=== PATIENT | female | born 1960 | race Caucasian/White ===

== ENCOUNTER → 2016-04-29 | Outpatient (RCR) ==
--- NOTE | 2016-04-29 11:24 | RS.OPPTEV2 ---
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 It was no specific inicident but just the repetative strain that has caouse the pain to increase over the past 3-4 months and she has had to quit her positoin and seek help. She saw her PCP and physical therapy was ordered. She has had PT in the past and it was helpful. Her pain is now lower thoracic and lumbar regions. The lower is somewhat worse. She has been off of work for 2 wks now without much difference in her pain. Prior Level of Function.....Patient was independent with: ADL's, Self Care, Work /Vocation, Caregiving, Ambulation/Mobility, Community Integration/Access Functional Limitations: Pushing, Pulling, Lifting, Carrying, Sitting, Standing, Bending, Squatting, Community Access/Integration Treatment Side (optional): Bilateral Medical History Medical History: Arthritis (ankles) Medical History Comments:: DDD Surgical History: Hysterectomy, Smoking Status: Former smoker Hx Home Medications: just finished a steroid pack Pain Assessment - Pain Description Pain Location: thoracolumbar region. Pain Description: Burning, Throbbing Pain Description: Intermittent pain. Current Pain Intensity: 3/10 Worst Pain Intensity: 8/10 Functional Outcome Measure Oswestry LBP: 14 - G Codes & Severity Modifier G Codes & Modifier: NA Source of G Code score: NA Observation - Observation Posture: Increased Thoracic Kyphosis, Increased Lumbar Lordosis Gait - Gait Pattern General Gait Pattern Observation: Antalgic Gait (Patient has injury to right foot which is causing her to walk with altered gt intermittently.) General Muscle Strength: BLE strength WNLs. - ROM Lumbar Flexion: Hand reach to ankles Sidebending to Left: Reach to Mid-thigh Sidebending to Right: Reach to Lateral Joint Line Lumbar Spine ROM Limitations: Soft Tissue Tightness, Pain - Strength Trunk Flexion: 3 Fair Trunk Rotation: 4+ Good + - Special Tests SLR Test: Negative Left, Negative Right Seated Dural Stretch Test: Negative Left, Negative Right SI Joint Compression: Negative Palpation Palpation Findings: Tenderness Sensation - Sensation Sensation Description: Within Normal Limits Interventions - Exercise/Activities/Manual Therapy Exercises/Activities: NA Manual Therapy: NA HOME EXERCISE PROGRAM: - - Charges Total Direct Minutes: 45 Total Treatment Time: 45 Procedures billed for this date of service:: PT Dimpleal (Low) and moist heat Assessment Assessment: Thoracolumbar pain that has been debilitating to her causing her to have to quit her job. Her functional activity has become limited due to repetetive injury. Patient Education: Education of diagnosis, Body/Joint mechanics, Activity Modification, Education of Plan of Care Rehab Potential: Good Short Term Goals Goal #1: Patient is pain free 50% of the time. Goal to be met by: 05/09/16 Goal #2: Upper abdominal strength 4/5 to support her core. Goal to be met by: 05/09/16 Goal #3: Back pain 5/10 at worst. Goal to be met by: 05/09/16 Goal #4: Independent with basic HEP. Goal to be met by: 05/09/16 Farm Contractor Goals Goal #1: Patient independent DC HEP. Goal to be met by: 05/23/16 Goal #2: Score on Oswestry Scale improved to 8. Goal to be met by: 05/23/16 Goal #3: Patient able to perform all functional activities w/ minimal pain Plan - Treatment to be Provided Procedures: Therapeutic Exercises, Therapeutic Activity, Manual Therapy, Massage , Patient Education Modalities: Electrical Stimulation, Ultrasound/Phonophoresis, Class IV Laser, Cryotherapy, Hot Packs - Treatment Plan Frequency: 2 X week (dpt) Duration: 4 weeks ORDER # VISITS AND/OR THROUGH DATE: 05/23/2016 - Treatment Code (1) Thoracolumbar back pain Comments: M54.4
== END ==
PROVIDERS: ATTEND Family Medicine
DX: M47.9 Spondylosis, unspecified (principal); M54.9 Dorsalgia, unspecified; G89.29 Other chronic pain

== ENCOUNTER 2016-05-23 08:15 | Outpatient (RCR) ==
--- NOTE | 2016-05-02 15:41 | RS.OPPTDN ---
Subjective Date of Note: 05/02/16 Visit #: 2 Date of Evaluation: 04/29/16 Payer Source: Insurance Treatment Diagnosis: Back Pain Current Subjective/complaints:: Patient states heat felt good at her eval, but her entire low back is sore today. Pain Assessment - Pain Description Pain Location: thoracolumbar region. Pain Description: Intermittent pain. Current Pain Intensity: 3/10 - Treatment Modality: Electrical Stim Unattended Parameters/Method Applied: IFC @ 15 pk volts x 20 mins to the lumbar region in sitting Patient Position: Sitting - Heat/Cryotherapy Treatment: Hot Pack Interventions - Exercise/Activities/Manual Therapy Exercises/Activities: Began manual stretching of SKTC, HS, Pirformis, Fig 4, and heel cords bilaterally. She begins pillow squeezes and isometric hip abd x 10. Gave red tband for hooklying hip abd for home. Total minutes of Exercise: 16 Manual Therapy: NA HOME EXERCISE PROGRAM: - - Charges Total Direct Minutes: 16 Total Treatment Time: 36 Procedures billed for this date of service:: hp, estim (un), ex Assessment: Patient seems to romina all treatment well today. She demo tightness bilaterally to the LB/Hams/Heel cords. She admitted relief of pressure and pain today. She is attentive with HEP suggestions and body mechanics. Patient Education: Education of diagnosis, Body/Joint mechanics, Home Exercise Program, Home Safety, Activity Modification, Education of Plan of Care Patient demonstrates compliance with HEP?: Yes Short Term Goals Goal #1: Patient is pain free 50% of the time. Goal to be met by: 05/09/16 Goal #2: Upper abdominal strength 4/5 to support her core. Goal to be met by: 05/09/16 Goal #3: Back pain 5/10 at worst. Goal to be met by: 05/09/16 Goal #4: Independent with basic HEP. Goal to be met by: 05/09/16 Residential Goals Goal #1: Patient independent DC HEP. Goal to be met by: 05/23/16 Goal #2: Score on Oswestry Scale improved to 8. Goal to be met by: 05/23/16 Goal #3: Patient able to perform all functional activities w/ minimal pain Plan PLAN OF CARE EXPIRES ON:: 05/23/16 ORDER # VISITS AND/OR THROUGH DATE: 05/23/2016 PLAN: Continue Plan of Care
--- NOTE | 2016-05-05 12:08 | RS.OPPTDN ---
Subjective Date of Note: 05/05/16 Visit #: 3 Date of Evaluation: 04/29/16 Payer Source: Insurance Treatment Diagnosis: Back Pain Current Subjective/complaints:: Patient says her back pain is not bad today. Reports knees are bothering her though. She denies any soreness from therex last session. Pain Assessment - Pain Description Pain Location: thoracolumbar region. Pain Description: Intermittent pain. Current Pain Intensity: 3/10 - Treatment Modality: Electrical Stim Unattended Parameters/Method Applied: IFC @ 12 cv x 20 mins to the lumbar paraspinals Patient Position: Sitting - Heat/Cryotherapy Treatment: Hot Pack (mid to low back) Interventions - Exercise/Activities/Manual Therapy Exercises/Activities: Began manual stretching of SKTC, HS, Pirformis, Fig 4, lower trunk rotation, and heel cords bilaterally. She continues with pillow squeezes 2x10, bridging, isometric hip flexion, isometric hip abd x 10. Total minutes of Exercise: 22 Manual Therapy: NA HOME EXERCISE PROGRAM: - - Charges Total Direct Minutes: 22 Total Treatment Time: 42 Procedures billed for this date of service:: hp, estim (un), ex Assessment: Patient with very little pain today to the LB. She says she did not have any trouble romina therex last session. She romina all well today demo improved flexibility. Patient Education: Education of diagnosis, Body/Joint mechanics, Home Exercise Program, Home Safety, Activity Modification, Education of Plan of Care Patient demonstrates compliance with HEP?: Yes Short Term Goals Goal #1: Patient is pain free 50% of the time. Goal to be met by: 05/09/16 Goal #2: Upper abdominal strength 4/5 to support her core. Goal to be met by: 05/09/16 Goal #3: Back pain 5/10 at worst. Goal to be met by: 05/09/16 Goal #4: Independent with basic HEP. Goal to be met by: 05/09/16 Sole Tier Goals Goal #1: Patient independent DC HEP. Goal to be met by: 05/23/16 Goal #2: Score on Oswestry Scale improved to 8. Goal to be met by: 05/23/16 Goal #3: Patient able to perform all functional activities w/ minimal pain Plan PLAN OF CARE EXPIRES ON:: 05/23/16 ORDER # VISITS AND/OR THROUGH DATE: 05/23/2016 PLAN: Progress Exercises
--- NOTE | 2016-05-09 12:00 | RS.OPPTDN ---
Subjective Date of Note: 05/09/16 Visit #: 4 Date of Evaluation: 04/29/16 Payer Source: Insurance Treatment Diagnosis: Back Pain Current Subjective/complaints:: Patient states treatment feels good and exercises are not bothering her, but seems to not last very long. She says pain is still in the same location (at the lumbar region). She c/o only mild pain today. Pain Assessment - Pain Description Pain Location: thoracolumbar region. Pain Description: Intermittent pain. Current Pain Intensity: 3/10 - Treatment Modality: Electrical Stim Unattended Parameters/Method Applied: IFC @ 13cv x 20 mins to the lumbar paraspinals Patient Position: Sitting - Heat/Cryotherapy Treatment: Hot Pack Interventions - Exercise/Activities/Manual Therapy Exercises/Activities: Continued with manual stretching of SKTC, HS, Pirformis, Fig 4, lower trunk rotation, and heel cords bilaterally. She continues with pillow squeezes 2x10, bridging, isometric hip flexion, isometric hip abd x 10. Total minutes of Exercise: 22 Manual Therapy: NA HOME EXERCISE PROGRAM: - - Charges Total Direct Minutes: 22 Total Treatment Time: 42 Procedures billed for this date of service:: hp, estim (un), ex Assessment: Patient admits to temporary relief currently to the low back. Symptoms continue to be local and stretches appear to be becoming easier and she is applying increased resistance with isometrics. Patient Education: Education of diagnosis, Body/Joint mechanics, Home Exercise Program, Home Safety, Activity Modification, Education of Plan of Care Patient demonstrates compliance with HEP?: Yes Short Term Goals Goal #1: Patient is pain free 50% of the time. Goal to be met by: 05/09/16 Progress towards Goal:: Progressing Goal #2: Upper abdominal strength 4/5 to support her core. Goal to be met by: 05/09/16 Goal #3: Back pain 5/10 at worst. Goal to be met by: 05/09/16 Progress towards Goal:: Progressing Goal #4: Independent with basic HEP. Goal to be met by: 05/09/16 Mural Artist Goals Goal #1: Patient independent DC HEP. Goal to be met by: 05/23/16 Goal #2: Score on Oswestry Scale improved to 8. Goal to be met by: 05/23/16 Goal #3: Patient able to perform all functional activities w/ minimal pain Plan PLAN OF CARE EXPIRES ON:: 05/23/16 ORDER # VISITS AND/OR THROUGH DATE: 05/23/2016 PLAN: Progress Exercises
--- NOTE | 2016-05-12 10:16 | RS.OPPTDN ---
Subjective Date of Note: 05/12/16 Visit #: 5 Date of Evaluation: 04/29/16 Payer Source: Insurance Treatment Diagnosis: Back Pain Current Subjective/complaints:: Patient states her back pain was better after her last session. Up until that point, she felt pain remained the same with treatment. She has been able to perform HEP without difficulty. Pain Assessment - Pain Description Pain Location: thoracolumbar region. Pain Description: Intermittent pain. Current Pain Intensity: 3/10, less today - Treatment Modality: Electrical Stim Unattended Parameters/Method Applied: IFC @ 16 cv to the lumbar paraspinals x 20 mins Patient Position: Sitting - Heat/Cryotherapy Treatment: Hot Pack (concurrent with estim) Interventions - Exercise/Activities/Manual Therapy Exercises/Activities: Continued with manual stretching of SKTC, HS, Pirformis, Fig 4, lower trunk rotation, and heel cords bilaterally. She continues with ball squeezes 2x10, bridging and started SLR 2x5, isometric hip flexion, isometric hip abd x 10. Total minutes of Exercise: 22 Manual Therapy: NA HOME EXERCISE PROGRAM: - - Charges Total Direct Minutes: 22 Total Treatment Time: 42 Procedures billed for this date of service:: hp, estim (un), ex Assessment: Patient admitting improved back pain with IFC treatment. She demonstrates increased flexibility today with all therex. She shows some general muscle fatigue with SLR, so only 2 sets of 5 were performed. She should gain further trunk stability and reduced back pain with further sessions. Patient Education: Education of diagnosis, Body/Joint mechanics, Home Exercise Program, Home Safety, Activity Modification, Education of Plan of Care Patient demonstrates compliance with HEP?: Yes Short Term Goals Goal #1: Patient is pain free 50% of the time. Goal to be met by: 05/09/16 Progress towards Goal:: Progressing Goal #2: Upper abdominal strength 4/5 to support her core. Goal to be met by: 05/09/16 Goal #3: Back pain 5/10 at worst. Goal to be met by: 05/09/16 Progress towards Goal:: Progressing Goal #4: Independent with basic HEP. Goal to be met by: 05/09/16 Correction Goals Goal #1: Patient independent DC HEP. Goal to be met by: 05/23/16 Goal #2: Score on Oswestry Scale improved to 8. Goal to be met by: 05/23/16 Goal #3: Patient able to perform all functional activities w/ minimal pain Plan PLAN OF CARE EXPIRES ON:: 05/23/16 ORDER # VISITS AND/OR THROUGH DATE: 05/23/2016 PLAN: Continue Plan of Care
--- NOTE | 2016-05-16 10:06 | RS.OPPTDN ---
Subjective Date of Note: 05/16/16 Visit #: 6 Date of Evaluation: 04/29/16 Payer Source: Insurance Treatment Diagnosis: Back Pain Current Subjective/complaints:: Patient states her back pain is better. Actuually denies pain currently. She says she still has trouble sleeping, but not necessarily due to back pain. Pain Assessment - Pain Description Pain Location: thoracolumbar region. Pain Description: Intermittent pain. Current Pain Intensity: 3/10, less today - Treatment Modality: Electrical Stim Unattended Parameters/Method Applied: IFC x 20 mins @ 12-14cv lumbar paraspinals Patient Position: Sitting - Heat/Cryotherapy Treatment: Hot Pack Interventions - Exercise/Activities/Manual Therapy Exercises/Activities: Continued with manual stretching of SKTC, HS, Pirformis, Fig 4, lower trunk rotation, and heel cords bilaterally. She continues with ball squeezes 2x10, bridging and started SLR 2x8, isometric hip flexion, isometric hip abd with green tband in hooklying 2 x 10. SAQ 1 1/2# and alternate LE lift 1 1/2# 2x10. Total minutes of Exercise: 25 Manual Therapy: NA HOME EXERCISE PROGRAM: - - Charges Total Direct Minutes: 25 Total Treatment Time: 40 Procedures billed for this date of service:: hp, estim (un), ex2 Assessment: Patient with reduced pain this week to the low back. She is romina progressive therex well and demonstrating increased flexibility. Patient Education: Education of diagnosis, Body/Joint mechanics, Home Exercise Program, Home Safety, Activity Modification, Education of Plan of Care Patient demonstrates compliance with HEP?: Yes Short Term Goals Goal #1: Patient is pain free 50% of the time. Goal to be met by: 05/09/16 Progress towards Goal:: Progressing Goal #2: Upper abdominal strength 4/5 to support her core. Goal to be met by: 05/09/16 Progress towards Goal:: Progressing Goal #3: Back pain 5/10 at worst. Goal to be met by: 05/09/16 Progress towards Goal:: Progressing Goal #4: Independent with basic HEP. Goal to be met by: 05/09/16 Correction Goals Goal #1: Patient independent DC HEP. Goal to be met by: 05/23/16 Goal #2: Score on Oswestry Scale improved to 8. Goal to be met by: 05/23/16 Goal #3: Patient able to perform all functional activities w/ minimal pain Plan PLAN OF CARE EXPIRES ON:: 05/23/16 ORDER # VISITS AND/OR THROUGH DATE: 05/23/2016 PLAN: Progress Exercises
--- NOTE | 2016-05-19 13:48 | RS.OPPTDN ---
Subjective Date of Note: 05/19/16 Visit #: 7 Date of Evaluation: 04/29/16 Payer Source: Insurance Treatment Diagnosis: Back Pain Current Subjective/complaints:: Patient reports her back pain has been much less the past few days. She says she walks at the park often. She is performing HEP. Pain Assessment - Pain Description Pain Location: thoracolumbar region. Pain Description: Intermittent pain. Current Pain Intensity: 3/10, less today - Treatment Modality: Electrical Stim Unattended Parameters/Method Applied: IFC 20 mins @ 15 cv bilateral lumbar paraspinals Patient Position: Sitting - Heat/Cryotherapy Treatment: Hot Pack Interventions - Exercise/Activities/Manual Therapy Exercises/Activities: Continued with manual stretching of SKTC, HS, Pirformis, Fig 4, lower trunk rotation, and heel cords bilaterally. She continues with ball squeezes 2x10, bridging and started SLR 2x8, isometric hip flexion, isometric hip abd with green tband in hooklying 2 x 10. SAQ 1 1/2# and alternate LE lift 1 1/2# 2x10. Total minutes of Exercise: 22 Manual Therapy: NA HOME EXERCISE PROGRAM: - - Charges Total Direct Minutes: 22 Total Treatment Time: 42 Procedures billed for this date of service:: hp, estim (un), ex Assessment: Patient romina increased therex with decreased back pain. She has begun a walking routine that is not causing her elevated pain or difficulty. Patient Education: Education of diagnosis, Body/Joint mechanics, Home Exercise Program, Home Safety, Activity Modification, Education of Plan of Care Patient demonstrates compliance with HEP?: Yes Short Term Goals Goal #1: Patient is pain free 50% of the time. Goal to be met by: 05/09/16 Progress towards Goal:: Progressing Goal #2: Upper abdominal strength 4/5 to support her core. Goal to be met by: 05/09/16 Progress towards Goal:: Progressing Goal #3: Back pain 5/10 at worst. Goal to be met by: 05/09/16 Progress towards Goal:: Progressing Goal #4: Independent with basic HEP. Goal to be met by: 05/09/16 Correspondent Goals Goal #1: Patient independent DC HEP. Goal to be met by: 05/23/16 Goal #2: Score on Oswestry Scale improved to 8. Goal to be met by: 05/23/16 Goal #3: Patient able to perform all functional activities w/ minimal pain Plan PLAN OF CARE EXPIRES ON:: 05/23/16 ORDER # VISITS AND/OR THROUGH DATE: 05/23/2016 PLAN: Progress Exercises (continue one more session per order)
--- NOTE | 2016-05-23 13:29 | RS.OPPTDN ---
Subjective Date of Note: 05/23/16 Visit #: 8 Date of Evaluation: 04/29/16 Payer Source: Insurance Treatment Diagnosis: Back Pain Current Subjective/complaints:: Patient says she does not have much pain now at all. Says she has mild soreness off and on at the mid back. Says she is still doing HEP. Pain Assessment - Pain Description Pain Location: thoracolumbar region. Pain Description: Intermittent pain. Current Pain Intensity: none - Treatment Modality: Electrical Stim Unattended Parameters/Method Applied: IFC @ 11 cv x 20 mins to the mid to low back Patient Position: Sitting - Heat/Cryotherapy Treatment: Hot Pack Interventions - Exercise/Activities/Manual Therapy Exercises/Activities: Continued with manual stretching of SKTC, HS, Pirformis, Fig 4, lower trunk rotation, and heel cords bilaterally. She continues with ball squeezes 2x10, bridging and SLR 2x10, isometric hip flexion, isometric hip abd with green tband in hooklying 2 x 10. SAQ 2 1/2# and alternate LE lift 1 1/2# 2x10. Sitting Red tband for scap retraction 2/10. Total minutes of Exercise: 22 Manual Therapy: NA HOME EXERCISE PROGRAM: - - Objective Findings Observations,measurements,etc.: Patient's Oswestry did not really improve by score, but she described a few areas that have gotten better. - Charges Total Direct Minutes: 22 Total Treatment Time: 42 Procedures billed for this date of service:: hp, ex, estim (un) Assessment: Patient has progressed with less pain and is independent with HEP at this point. Patient Education: Education of diagnosis, Body/Joint mechanics, Home Exercise Program, Home Safety, Activity Modification, Education of Plan of Care Patient demonstrates compliance with HEP?: Yes Short Term Goals Goal #1: Patient is pain free 50% of the time. Goal to be met by: 05/09/16 Progress towards Goal:: Met Goal #2: Upper abdominal strength 4/5 to support her core. Goal to be met by: 05/09/16 Progress towards Goal:: Met Goal #3: Back pain 5/10 at worst. Goal to be met by: 05/09/16 Progress towards Goal:: Met Goal #4: Independent with basic HEP. Goal to be met by: 05/09/16 [facility] Goals Goal #1: Patient independent DC HEP. Goal to be met by: 05/23/16 Goal #2: Score on Oswestry Scale improved to 8. Goal to be met by: 05/23/16 Goal #3: Patient able to perform all functional activities w/ minimal pain Plan PLAN OF CARE EXPIRES ON:: 05/23/16 ORDER # VISITS AND/OR THROUGH DATE: 05/23/2016 PLAN: Plan for Discharge
--- NOTE | 2016-06-26 08:55 | RS.QUICKDC ---
Discharge from PT Date of Discharge: 05/23/16 Number of Visits: 8 Reason for Discharge: Joselyn completed original order for PT of 8 sessions. Patient had attended for moist heat, estim, and therex of passive stretching and trunk stability. She progressed well with decreased back pain, but no change in Oswestry LBP Scale. She has a HEP and postural/body mechanics education.
== END 2016-05-27 ==
PROVIDERS: ATTEND Family Medicine
DX: M47.9 Spondylosis, unspecified (principal); M54.9 Dorsalgia, unspecified; G89.29 Other chronic pain

== ENCOUNTER 2017-09-21 10:06 | Outpatient (CLI) ==
--- NOTE | 2017-09-21 14:11 | MRI ---
EXAM: MRI lumbar spine without and with IV contrast. DATE: 21 September 2017. HISTORY: Lumbar osteoarthritis and pain. TECHNIQUE: Sagittal and axial T1W, T2W, and T1W postcontrast sequences of the lumbar spine along wit h sagittal IR and coronal T2W sequences were obtained using 1.2 Ivory magnet. CONTRAST: Omniscan - 17 ml IV. COMPARISON: MRI L-spine 07/11/2014. CT abdomen/pelvis August 2010. FINDINGS: There are five xio-sca-midkhsj lumbar vertebra. Mild rotatory dextroscoliosis of the lumb ar spine is present, with the apex of curvature at L4-5. No acute lumbar fracture, subluxation, osse ous malignancy, or pars interarticularis defect is demonstrated. Lumbar vertebra are normal in heigh t. Bone marrow signal is overall normal. Small/moderate osteophytes are observed in multiple lower thoracic and lumbar vertebra. mild L2-3, minor L3-4, and minor L4-5 disc space narrowing is detected . No acute sacral fracture or stress reaction is identified. SI joints are unremarkable. Conus med ullaris terminates at L1. No cord edema, syrinx, myelomalacia, or neoplasm is identified. No abnorm al contrast enhancement is detected in the spinal cord, nerve roots, vertebral bodies or intervertebr al discs. No retroperitoneal lymphadenopathy, paraspinal mass, or aortic aneurysm is detected. Paraspinal musc ulature is symmetric bilaterally. Visible portions of the liver, spleen, adrenal glands kidneys are limited by a breathing motion artifacts, but reveal no definitive malignancy. CBD is 7.4 mm tapering to 3.5 mm diameter at the pancreatic head level. No intraluminal stones, pancreatic mass or inflamm atory process is apparent. No bowel obstruction or malignancy is demonstrated. Segmental analysis: T11-12: Normal. T12-L1: Normal. L1-2: Normal. L2-3: Small concentric disc bulge and minor facet disease cause mild bilateral foraminal narrowing. No central canal stenosis. L3-4: Small concentric disc bulge and minor facet arthropathy cause triangulation of the canal and m inor bilateral foraminal narrowing. No central canal stenosis. L4-5: Minor concentric disc bulge, mild facet arthropathy, and mild ligamentum flavum hypertrophy ca use moderate central canal stenosis and mild bilateral foraminal stenoses. Right L4 nerve root conta cts the disc bulge near the lateral margin of the foramen. L5-S1: Minor concentric disc bulge, mild right facet arthropathy, and minor left facet disease cause mild left foraminal narrowing. Left L5 nerve root contacts disc bulge near the lateral margin of th e foramen. No central canal stenosis. IMPRESSIONS: 1. Lumbar spine mild rotatory dextroscoliosis, moderate spondylosis, mild facet arthropathy, and mul tilevel DDD. 2. Multilevel lumbar foraminal stenoses (minor/mild). Right L4 and left L5 nerve roots contact disc bulges near the foramen, and may be sources for pain/radiculopathy. 3. Minor L3-4 and moderate L4-5 central canal stenoses. 4. The 7.4 mm CBD is within normal limits for patient S/P cholecystectomy.
== END 2017-09-21 10:07 | disposition home or self-care (01) ==
LOC: RAD 10:06
PROVIDERS: ATTEND Family Medicine
DX: M47.9 Spondylosis, unspecified (principal); M54.9 Dorsalgia, unspecified; G89.29 Other chronic pain; E78.5 Hyperlipidemia, unspecified; K21.9 Gastro-esophageal reflux disease without esophagitis; E55.9 Vitamin D deficiency, unspecified
CPT/HCPCS: 36415; 80053; 80061; 82306; 84436; 84443; 85025